=== PATIENT | female | born 1965 | race Caucasian/White ===

== ENCOUNTER 2023-07-20 15:10 | Emergency (ER) | payer BC ==
[~2023-07-20] VITALS: Ht 149.9 cm; Wt 57.2 kg
[2023-07-20 15:30] VITALS: BP 114/71; PULSE 85; RESP 18; TEMP 97.7; O2SAT 100
[2023-07-20] MEDS ORDERED: KETOROLAC 30 MG/ML VIAL IM ONE (16:15)
[2023-07-20 16:59] LABS: APPEARANCE,URINE CLEAR (CLEAR); BILIRUBIN,URINE NEGATIVE (NEGATIVE); BLOOD, URINE NEGATIVE (NEGATIVE); COLOR,URINE YELLOW (YELLOW); LEUKOCYTE ESTERASE ,URINE NEGATIVE (NEGATIVE); NITRITE, URINE NEGATIVE (NEGATIVE); PH,URINE 7.5 (5.0-9.0); PROTEIN,URINE TRACE (NEGATIVE); UGLUCOSE NEGATIVE (NEGATIVE)
[2023-07-20 17:12] LABS: RBC,URINE 0-5 /HPF (0-5); WBC,URINE 0-5 /HPF (0-5)
[2023-07-20 17:13] LABS: BACTERIA,URINE FEW /HPF (None Seen); SQUAMOUS EPITHELIAL CELL,UR 4-10 (MOD) /LPF (0-3 (FEW))
[2023-07-20] MEDS ORDERED: KETOROLAC 30 MG/ML VIAL ONE (18:02)
[2023-07-20 18:31] LABS: FLU A ANTIGEN negative (NEGATIVE); FLU B ANTIGEN NEGATIVE (NEGATIVE)
[2023-07-20] MEDS ORDERED: ACET-10509 PO (18:44)
[2023-07-20] MEDS ORDERED: IBUP200C97 PO (18:44)
[2023-07-20 19:09] VITALS: BP 114/71; PULSE 85; RESP 18; TEMP 97.7; O2SAT 100
== END 2023-07-20 19:09 | disposition home or self-care (01) ==
LOC: MED 15:10
DX: B34.9 Viral infection, unspecified (principal); Z20.822 Contact with and (suspected) exposure to COVID-19; Z79.899 Other long term (current) drug therapy
CPT/HCPCS: 81001; 87426; 87804; 96372; 99283; J1885

== ENCOUNTER 2024-01-15 10:53 | Emergency (ER) | payer BC ==
[~2024-01-15] VITALS: Ht 154.9 cm; Wt 54.4 kg
[~2024-01-15 10:53] MED LIST: ACET-10509 PO; IBUP200C97 PO
[2024-01-15 10:58] VITALS: BP 113/71; PULSE 5; RESP 16; TEMP 97.8; O2SAT 99
[2024-01-15 12:56] VITALS: BP 113/71; PULSE 5; RESP 16; TEMP 97.8; O2SAT 99
== END 2024-01-15 12:56 | disposition home or self-care (01) ==
LOC: MED 10:53
DX: S71.131A Puncture wound without foreign body, right thigh, initial encounter (principal); Z79.899 Other long term (current) drug therapy; W54.0XXA Bitten by dog, initial encounter; Y93.89 Activity, other specified; Y92.89 Other specified places as the place of occurrence of the external cause; Y99.8 Other external cause status
CPT/HCPCS: 99281